=== PATIENT | female | born 1990 | race African-American/Black ===

== ENCOUNTER 2017-03-28 23:57 | Emergency (ER) | payer SELFPAY ==
[~2017-03-28] VITALS: Ht 170.2 cm; Wt 55.0 kg
[~2017-03-28 23:57] MED LIST: ZOFR4TAB3 SL
[2017-03-29 00:01] VITALS: BP 104/66; PULSE 85; RESP 16; TEMP 99.4; O2SAT 100
[2017-03-29] MEDS ORDERED: DOXY100C PO (00:24)
[2017-03-29] MEDS ORDERED: METR-1 PO (00:24)
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
[2017-03-29] MEDS ORDERED: SULFAMETHOXAZOLE-TRIMETHOPRIM DS 800-160 MG TAB PO ONE (00:30)
[2017-03-29] MEDS ORDERED: metroNIDAZOLE 500 MG TAB PO ONE (00:30)
== END 2017-03-29 01:13 | disposition home or self-care (01) ==
LOC: NEPK 23:57
DX: S41.151A Open bite of right upper arm, initial encounter (principal); Y04.1XXA Assault by human bite, initial encounter
CPT/HCPCS: 99282

== ENCOUNTER 2017-06-01 20:05 | Emergency (ER) | payer SELFPAY ==
[~2017-06-01] VITALS: Ht 162.6 cm; Wt 57.0 kg
[~2017-06-01 20:05] MED LIST changes: +DOXY100C PO; +METR-1 PO; -ZOFR4TAB3 SL
[2017-06-01 20:07] VITALS: BP 119/61; PULSE 73; RESP 16; TEMP 98.5; O2SAT 99
--- NOTE | 2017-06-01 20:16 | PD ---
Physical Exam Date Seen by Provider: Jun 01, 2017 Time Seen by Provider: 20:15 Narrative 27 yo female here for tooth pain. Going on for a few days. Pain is 8/10. Has not seen anybody for this. no injury. Also complains of back pain going on for some time. No injury. Gets worst with movement. Vitals are stable. Awaiting bed placement. Data Data Last Documented VS Vital Signs Date Time Temp Pulse Resp B/P Pulse Ox O2 Delivery O2 Flow Rate FiO2 06/01/17 20:07 98.5 73 16 119/61 99 Room Air [facility] Medical Record Reviewed: Yes Supervised Visit with LUMA: No Rafael Silveira Jun 01, 2017 20:16
== END 2017-06-01 21:16 | disposition left against medical advice (07) ==
LOC: NED 21:10
DX: K08.89 Other specified disorders of teeth and supporting structures (principal); M54.9 Dorsalgia, unspecified; Z53.21 Procedure and treatment not carried out due to patient leaving prior to being seen by health care provider
CPT/HCPCS: 99281

== ENCOUNTER 2017-10-26 15:54 | Emergency (ER) | payer OTHER ==
[~2017-10-26] VITALS: Ht 162.6 cm; Wt 56.0 kg
[2017-10-26 16:05] VITALS: BP 105/55; PULSE 73; RESP 16; TEMP 98.2; O2SAT 99
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
[2017-10-26] MEDS ORDERED: ORPHENADRINE INJ 60 MG/2 ML AMP IM ONE (17:00)
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
[2017-10-26] MEDS ORDERED: ROBA500T PO (18:00)
== END 2017-10-26 18:13 | disposition home or self-care (01) ==
LOC: PHED 15:54
DX: S40.012A Contusion of left shoulder, initial encounter (principal); M54.5 Low back pain; T14.8XXA Other injury of unspecified body region, initial encounter; V49.49XA Driver injured in collision with other motor vehicles in traffic accident, initial encounter; Z72.0 Tobacco use
CPT/HCPCS: 72020; 72100; 73030; 96372; 99284; J2360